=== PATIENT | male | born 1980 | race African-American/Black ===

== ENCOUNTER → 2017-01-28 | Outpatient (CLI) | payer OTHER ==
--- NOTE | 2017-01-28 12:49 | REP ---
Clinical: Groin pain. Technique: Real time hurtado scale ultrasound examination using linear high frequency transducer. Findings: Directed ultrasound examination of the bilateral groin and proximal inguinal canals during normal respiration and Valsalva demonstrate normal subcutaneous tissues without fluid collection, mass, or hernia. Impression: Normal examination. No evidence for hernia. Signed by Jani Diallo MD 01/28/2017 12:41 P
== END ==
LOC: M RAD 12:05
PROVIDERS: ATTEND Physician Assistant
DX: R10.2 Pelvic and perineal pain (principal)

== ENCOUNTER → 2017-06-07 | Outpatient (CLI) | payer OTHER ==
[2017-06-07 18:14] LABS: HEMATOCRIT 43.9 % (42.0-52.0); HEMOGLOBIN 14.4 g/dl (14.0-18.0); MEAN CORPUSCULAR HEMOGLOBIN 30.1 pg (27.0-33.0); MEAN CORPUSCULAR HGB CONC 32.8 g/dl (32.0-36.5); MEAN CORPUSCULAR VOLUME 91.8 fl (80.0-96.0); PLATELET COUNT, AUTOMATED 229 10^3/uL (150-450); RED BLOOD COUNT 4.78 10^6/uL (4.30-6.10); RED CELL DISTRIBUTION WIDTH 13.3 % (11.5-14.5); WHITE BLOOD COUNT 5.5 10^3/uL (4.0-10.0)
[2017-06-07 18:43] LABS: ALBUMIN/GLOBULIN RATIO 1.18 (1.00-1.93); ALKALINE PHOSPHATASE 86 U/L (45-117); ALT/SGPT 45 U/L (12-78); ANION GAP 7 MEQ/L (8-16); AST/SGOT 19 U/L (7-37); BILIRUBIN,TOTAL 0.6 MG/DL (0.2-1.0); BLOOD UREA NITROGEN 14 MG/DL (7-18); CALCIUM LEVEL 8.7 MG/DL (8.5-10.1); CARBON DIOXIDE LEVEL 28 MEQ/L (21-32); CHLORIDE LEVEL 107 MEQ/L (98-107); CREATININE FOR GFR 1.55 MG/DL (0.70-1.30); FREE T4 0.72 NG/DL (0.76-1.46); GLOMERULAR FILTRATION RATE > 60.0 (>60); GLUCOSE, FASTING 90 MG/DL (70-105); SODIUM LEVEL 142 MEQ/L (136-145); TOTAL PROTEIN 7.4 GM/DL (6.4-8.2)
[2017-06-09 11:17] LABS: TOTAL 25(OH) VITAMIN D 8.3 NG/ML (30.0-100.0)
== END ==
LOC: M WUC 09:08
DX: M25.562 Pain in left knee (principal)
CPT/HCPCS: 84443

== ENCOUNTER 2018-04-07 15:25 | Emergency (ER) | payer OTHER | END 2018-04-07 17:03 | disposition home or self-care (01) | LOC: M ED 15:25 | DX: F43.0 Acute stress reaction (principal); F41.9 Anxiety disorder, unspecified; Z88.0 Allergy status to penicillin | CPT/HCPCS: 99282 ==

== ENCOUNTER 2018-05-14 17:28 | Emergency (ER) | payer OTHER ==
[2018-05-14] MEDS: hydrOXYzine 25 MG TAB PO (20:27)
== END 2018-05-14 20:30 | disposition home or self-care (01) ==
LOC: M ED 17:28
DX: F41.9 Anxiety disorder, unspecified (principal); Z76.0 Encounter for issue of repeat prescription
CPT/HCPCS: 99284

== ENCOUNTER 2018-08-17 10:28 | Emergency (ER) | payer OTHER ==
[~2018-08-17] VITALS: Ht 182.9 cm; Wt 100.0 kg
[~2018-08-17 10:28] MED LIST: HYDR-3363 PO; ZOLO50TA PO
[2018-08-17] MEDS ORDERED: ROBA500T PO (12:03)
[2018-08-17] MEDS ORDERED: NAPR-837 PO (12:03)
[2018-08-17 12:05] VITALS: BP 137/92
== END 2018-08-17 12:11 | disposition home or self-care (01) ==
LOC: M ED 10:28
DX: M62.830 Muscle spasm of back (principal); Z88.0 Allergy status to penicillin

== ENCOUNTER 2019-03-16 10:26 | Emergency (ER) | payer OTHER ==
[~2019-03-16] VITALS: Ht 182.9 cm; Wt 103.2 kg
[2019-03-16 10:26] VITALS: BP 139/80
[~2019-03-16 10:26] MED LIST changes: +NAPR-837 PO; +ROBA500T PO
[2019-03-16] MEDS ORDERED: KETOROLAC TROMETHAMINE 10 MG TAB PO ONE (11:15)
[2019-03-16] MEDS ORDERED: CYCLOBENZAPRINE 10 MG TAB PO ONE (11:15)
[2019-03-16] MEDS ORDERED: diazePAM 5 MG TAB PO ONE (13:00)
[2019-03-16] MEDS ORDERED: VALI5TAB PO (15:02)
[2019-03-16] MEDS ORDERED: KETO10TAB PO (15:02)
== END 2019-03-16 15:08 | disposition home or self-care (01) ==
LOC: M ED 10:26
DX: M62.830 Muscle spasm of back (principal); Z79.899 Other long term (current) drug therapy; Z88.0 Allergy status to penicillin

== ENCOUNTER 2020-02-02 11:38 | Emergency (ER) | payer OTHER ==
[~2020-02-02] VITALS: Ht 182.9 cm; Wt 108.1 kg
[~2020-02-02 11:38] MED LIST changes: +KETO10TAB PO; +VALI5TAB PO
[2020-02-02 12:28] LABS: BASO % 0.5 % (0.0-1.0); EOS # 0.1 10^3/uL (0.0-0.5); EOS % 2.2 % (0.0-3.0); HEMATOCRIT 46.4 % (42.0-52.0); HEMOGLOBIN 15.4 g/dl (13.5-17.5); LYMPH # 1.9 10^3/uL (1.5-5.0); LYMPH % 30.4 % (24.0-44.0); MEAN CORPUSCULAR HEMOGLOBIN 30.2 pg (27.0-33.0); MEAN CORPUSCULAR HGB CONC 33.2 g/dl (32.0-36.5); MONO # 0.5 10^3/uL (0.0-0.8); MONO % 7.5 % (0.0-5.0); NEUTROPHILS # 3.7 10^3/uL (1.5-8.5); NEUTROPHILS % 58.9 % (36.0-66.0); PLATELET COUNT, AUTOMATED 218 10^3/uL (150-450); WHITE BLOOD COUNT 6.2 10^3/uL (4.0-10.0)
[2020-02-02] MEDS ORDERED: PANTOPRAZOLE 40MG VIAL (C9113 PER 1) IV ONE (12:30)
[2020-02-02] MEDS ORDERED: NS 1,000 ML IV ONE (12:30)
[2020-02-02 12:49] LABS: ALBUMIN 3.9 GM/DL (3.2-5.2); BILIRUBIN,DIRECT 0.2 MG/DL (0.0-0.2); BILIRUBIN,TOTAL 0.7 MG/DL (0.2-1.0); TOTAL PROTEIN 7.6 GM/DL (6.4-8.2)
[2020-02-02] MEDS ORDERED: OMEP-218 PO (13:07)
[2020-02-02 14:05] VITALS: BP 141/90
== END 2020-02-02 14:07 | disposition home or self-care (01) ==
LOC: M ED 11:38
DX: K27.9 Peptic ulcer, site unspecified, unspecified as acute or chronic, without hemorrhage or perforation (principal); Z79.899 Other long term (current) drug therapy; Z88.0 Allergy status to penicillin
CPT/HCPCS: 80047; 80076; 81001; 83690; 85025; 96361; 96374; 99284; C9113

== ENCOUNTER 2023-07-25 16:13 | Emergency (ER) | payer OTHER ==
[~2023-07-25] VITALS: Ht 182.9 cm; Wt 110.9 kg
[~2023-07-25 16:13] MED LIST changes: +OMEP-173 PO
[2023-07-25 16:14] VITALS: TEMP 97.4; O2SAT 99
[2023-07-25 17:21] LABS: BASO # 0.1 10^3/uL (0.0-0.2); BASO % 0.8 % (0.0-1.0); EOS # 0.1 10^3/uL (0.0-0.5); EOS % 1.8 % (0.0-3.0); HEMATOCRIT 43.8 % (42.0-52.0); HEMOGLOBIN 14.6 g/dl (13.5-17.5); LYMPH # 3.1 10^3/uL (1.5-5.0); MEAN CORPUSCULAR HEMOGLOBIN 30.4 pg (27.0-33.0); MEAN CORPUSCULAR HGB CONC 33.3 g/dl (32.0-36.5); MEAN CORPUSCULAR VOLUME 91.1 fl (80.0-96.0); MONO # 0.6 10^3/uL (0.0-0.8); MONO % 9.2 % (2.0-8.0); NEUTROPHILS # 2.8 10^3/uL (1.5-8.5); PLATELET COUNT, AUTOMATED 234 10^3/uL (150-450); RED BLOOD COUNT 4.81 10^6/uL (4.30-6.10); WHITE BLOOD COUNT 6.6 10^3/uL (4.0-10.0)
[2023-07-25 17:36] LABS: LIPASE 28 U/L (12-53)
[2023-07-25 17:38] LABS: AMYLASE 87 U/L (30-118)
[2023-07-25 17:39] LABS: ALKALINE PHOSPHATASE 109 U/L (46-116); ALT/SGPT 55 U/L (7.0-40); AST/SGOT 23 U/L (<34); BILIRUBIN,DIRECT 0.2 MG/DL (<0.4); BILIRUBIN,TOTAL 0.5 MG/DL (0.3-1.2); BLOOD UREA NITROGEN 14 MG/DL (9-23); CALCIUM LEVEL 8.9 MG/DL (8.5-10.1); CARBON DIOXIDE LEVEL 30 MMOL/L (20-31); CHLORIDE LEVEL 106 MMOL/L (98-107); CREATININE FOR GFR 1.38 MG/DL (0.70-1.30); GLOMERULAR FILTRATION RATE > 60.0 (>60); GLUCOSE, FASTING 89 MG/DL (60-100); POTASSIUM SERUM 3.6 MMOL/L (3.5-5.1); SODIUM LEVEL 139 MMOL/L (136-145); TOTAL PROTEIN 7.2 G/DL (5.7-8.2)
[2023-07-25] MEDS ORDERED: ISOVUE-370 76% 100ML VIAL As Ordered ONE (19:44)
[2023-07-25] MEDS: KETOROLAC 30 MG/ML 1ML VIAL IV ONE (20:12)
[2023-07-25] MEDS: NS 500 ML IV ONE (20:13)
[2023-07-25 20:59] VITALS: BP 141/90
== END 2023-07-25 21:27 | disposition home or self-care (01) ==
LOC: M ED 16:13
DX: R10.9 Unspecified abdominal pain (principal); N18.9 Chronic kidney disease, unspecified; Z88.0 Allergy status to penicillin
CPT/HCPCS: 71275; 74177; 80048; 80076; 81001; 82150; 83690; 85025; 96374; 99284; J1885; Q9967

== ENCOUNTER → 2025-02-21 | Outpatient (REF) | LOC: M EMP 12:42 | PROVIDERS: ATTEND Family Medicine | DX: Z02.89 Encounter for other administrative examinations (principal) ==

== ENCOUNTER → 2025-05-10 | Outpatient (REF) ==
[2025-05-13 08:49] LABS: SOFIA COVID ANTIGEN NEGATIVE (NEGATIVE)
== END ==
LOC: M EMP 08:04
PROVIDERS: ATTEND Family Medicine
DX: Z11.52 Encounter for screening for COVID-19 (principal)